=== PATIENT | female | born 1945 | race Caucasian/White ===

== ENCOUNTER → 2019-09-15 12:33 | Day surgery (SDC) | payer MEDICARE ==
--- NOTE | 2019-09-04 07:24 | HP ---
CC: Dr. Gabby Craig, [facility] * ADMISSION HISTORY AND PHYSICAL: DATE OF ADMISSION: 09/15/19 ATTENDING SURGEON: Dr. Mamadou Baker.* (DICTATED BY LATOSHA JEFFERSON) CHIEF COMPLAINT: Right inguinal hernia. HISTORY OF PRESENT ILLNESS: This is a 74-year-old female who was referred by Dr. Craig for evaluation of a right inguinal hernia. She states that the hernia has been present for the past 3 to 4 years and seemed to occur after a period of heavy lifting. She had some initial discomfort. She has noticed some increase in size over the years. More recently beginning about a month ago and after some extensive strenuous work, she noticed some increased pain. She has since modified her activity level without significant recurrence. She does note the onset of loose stool in the morning since the painful episode. There has been no blood in the stool. She has not had any change in her baseline symptoms. She does believe she has a cystocele and has a consult pending with Dr. Wylie in November. She was seen initially by Dr. Baker in May and more recently again on 08/23/19. Exam confirmed the presence of a reducible nontender right inguinal hernia with no hernia noted on the left. She has healed scars from her other prior surgeries. He discussed with her the indications for repair including risks, benefits, and alternatives as well as methods of repair. She is in agreement to proceed as scheduled with laparoscopic repair of her right inguinal hernia with mesh. PAST MEDICAL HISTORY: She is treated for hypertension and hyperlipidemia. She was evaluated in 2014 for Takotsubo syndrome and did undergo a catheterization at that time, which she states was otherwise normal. She has a suspected cystocele. PAST SURGICAL HISTORY: Previous surgeries include multiple laparoscopies, ovarian wedge resection for benign disease, rectocele repair listed in her chart record from 1988. No reported surgical or anesthesia complications. CURRENT MEDICATIONS: 1. Losartan 25 mg once daily. 2. Simvastatin 20 mg once daily. She also takes the following supplements: 1. Glucosamine with chondroitin. 2. Multivitamin. 3. Vitamin C and D. 4. Folic acid. 5. Calcium and magnesium. DRUG ALLERGIES: None. FAMILY HISTORY: Negative for anesthesia problems, bleeding, or clotting disorder. SOCIAL HISTORY: The patient lives with her son. She is a former smoker, who quit at age 23 after a 5-year history. She drinks on average less than or equal to 1 drink per day. She denies any other recreational drug use. REVIEW OF SYSTEMS: General: No recent constitutional symptoms or acute illnesses. Her weight has been stable. HEENT: No problems reported. Cardiovascular: As above in the past medical history. No recent symptoms of chest pain, palpitations, or shortness of breath. Respiratory: No chronic cough or shortness of breath. GI: Occasional GERD symptoms, relieved by over- the-counter antacids, but generally controlled with diet. Most recent colonoscopy around 2012 with no recommendation for further screening. : As above, no additions. MEDIA CONSULTANT OUTSIDE SALES: As above, no additions. Endocrine: No diabetes or thyroid dysfunction. PHYSICAL EXAMINATION GENERAL: Well-nourished, well-developed female in no acute distress. VITAL SIGNS: Height 5 feet 4-1/2 inches, weight 155 pounds. Blood pressure 122 /62, pulse 68, respirations 16. HEENT: Pupils are equal, round, and reactive. EOMs intact. No conjunctival pallor. Oropharynx: Teeth in good repair. No intraoral lesions. NECK: No lymphadenopathy, thyromegaly, or masses. LUNGS: Clear to auscultation. No rales or wheezes. HEART: Regular rate and rhythm. No murmur appreciated. BREASTS: Not examined. ABDOMEN: Umbilical scar as well as low transverse surgical incision. Soft, nontender to palpation. No palpable masses or organomegaly with the exception of the reducible nontender right inguinal hernia per Dr. Baker' exam. RECTAL: Not done. BACK: No spinous process or CVA tenderness. EXTREMITIES: No edema. NEUROLOGICAL: Grossly intact. SKIN: Warm and dry. No suspicious rashes or lesions noted. IMPRESSION: Right inguinal hernia. PLAN: Laparoscopic repair of right inguinal hernia with mesh. LATOSHA JEFFERSON [id number]/[facility] #: [id number] MTDD
[~2019-09-15 12:33] MED LIST: Acetaminophen TAB* 325 MG ONE; Acetaminophen TAB* 325 MG PO ONE; Acetaminophen TAB* 325 MG PO PRN; Buffered Lidocaine 1% SYRIN* 1 ML/SYRINGE INTRADERM ONE; Bupivacaine 0.25% EPI 200,000* 30 ML SDV ONE; Dexamethasone IV* 4 MG/ML 1 ML (4 MG) IM ONE; Dexamethasone IV* 4 MG/ML 1 ML (4 MG) IV SLOW PU ONE; Dexamethasone IV* 4 MG/ML 1 ML (4 MG) ONE; DiMENhydriNATE IV* 50 MG/ML VIAL IV PUSH PRN; EPHEDrine (Pressors)* 50 MG/ML VIAL ONE; Famotidine IV* 10 MG/ML 2 ML (20 mg) IV SLOW PU ONE; Famotidine IV* 10 MG/ML 2 ML (20 mg) ONE; HYDROcodone/ACETAMIN 5-325 MG* 1 TAB PO PRN; Ibuprofen TAB* 200 MG PO PRN; Ketorolac INJ* 30 MG/ML 1 ML VIAL ONE; Lactated Ringers 1000 ML Bag* 1,000 ML IV SCH; Lidocaine 2% PF * 5 ML VIAL ONE; Midazolam* 1 MG/ML 2 ML VIAL (2 MG) ONE; Naloxone* 0.4 MG/ML 1 ML VIAL IV PRN; Ondansetron INJ* 2 MG/ML VIAL IV PRN; Ondansetron INJ* 2 MG/ML VIAL ONE; PROCHLORPERAZINE INJ 5 MG/ML 2 ML VIAL IV PRN; Propofol* 10 MG/ML 20 ML BTL ONE; Rocuronium* 10 MG/ML VIAL ONE; Sugammadex * 200 MG/2 ML VIAL IV PUSH ONE; ceFAZolin 2 GM in NS PREMIX(*) 2 GM/100 ML BAG IVPB ONE; diPHENhydraMINE IV* 50 MG/ML 1 ml VIAL (BENADRYL) IV PRN; fentaNYL* 50 MCG/ML 2 ML VIAL (100 MCG VIAL) ONE; fentaNYL* 50 MCG/ML 5 ML VIAL (250 MCG VIAL) ONE
--- NOTE | 2019-09-15 20:18 | OP ---
Operative Report - Blank - Operative Report Date of Operation: 09/15/19
[2019-09-15] MEDS: fentaNYL* 50 MCG/ML 2 ML VIAL (100 MCG VIAL) IV PRN ×4 (20:35→21:01)
--- NOTE | 2019-09-15 22:36 | OP ---
CC: Gabby Craig MD * DATE OF OPERATION: 09/15/19 - [facility] DATE OF : 43 SURGEON: Mamadou Baker MD ENTRY LEVEL PROGRAMMER: Dr. Godoy. ANESTHESIOLOGIST: Dr. Spears. ANESTHESIA: General endotracheal. PRE-OP DIAGNOSIS: Right inguinal hernia. POST-OP DIAGNOSIS: Right inguinal hernia. OPERATIVE PROCEDURE: Laparoscopic repair of right inguinal hernia with mesh ( SATHYA). ESTIMATED BLOOD LOSS: Minimal. IV FLUIDS: Crystalloid. SPECIMEN: None. DRAINS: None. COMPLICATIONS: None. COUNTS: Instrument, needle, and sponge count correct. OPERATIVE FINDINGS: A right direct inguinal hernia. DESCRIPTION OF PROCEDURE: The patient was brought to the operating room and placed on the table supine. Sequential compression devices were placed in both lower extremities. General anesthesia was administered. García catheter was placed. Abdomen was prepped and draped in the usual sterile fashion. Time-out was performed. Local anesthetic was infiltrated infraumbilically. Curvilinear infraumbilical incision was created and anterior rectus fascia in the midline was incised. Preperitoneal balloon dissector was positioned and upon insufflation revealed this had gone intraperitoneally. This was removed and decision was made to perform transabdominal preperitoneal repair. The peritoneum was entered through the infraumbilical incision and 12 mm blunt port was placed. Carbon dioxide was insufflated to a pressure of 15 mmHg. Under direct visualization, two 5 mm trocars were placed, one in the right lower quadrant, one in the left lower quadrant. Scissors were used to incise the peritoneum about 8 cm above the inguinal ligament extending this from the area of the anterior superior iliac spine transversely to the medial umbilical ligament. There was an adhesive band noted in this area that was divided and in doing so it was noted that this appeared to be suspensory suture, presumable from the patient's previous surgery. The preperitoneal space was then entered and the dissection proceeded down to the pubic symphysis. Jorge's ligament was identified and the inferior epigastric vessels were identified. There was a direct inguinal hernia that was completely reduced. Inferior epigastric vessels were preserved. The round ligament was divided in order to fully dissect out the peritoneal flaps. Subsequently, a 10 x 15 cm Medtronic ProGrip mesh was placed to cover the entire hernia space extending from the midline laterally. Repair of the peritoneal incision was performed with 3-0 V-Loc 90 suture running from lateral to medial. One rent in the peritoneum was closed with the same type of suture. Subsequently, ports were removed and carbon dioxide was released. Infraumbilically, the fascia was closed with 0 Vicryl. Skin incisions were all closed with 4-0 Monocryl and then DermaFlex was applied. The patient tolerated the procedure well, was extubated and transferred to Recovery in stable condition. [id number]/[facility] #: [id number] [facility] HOSPITALAudelia
[2019-09-15 22:39] VITALS: BP 128/78
== END | disposition home or self-care (01) ==
LOC: OR 12:33
PROVIDERS: ATTEND Surgery
PROC: 0YU54JZ Supplement Right Inguinal Region with Synthetic Substitute, Percutaneous Endoscopic Approach (ICD-10-PCS; principal; 2019-09-15 14:15)
DX: K40.90 Unilateral inguinal hernia, without obstruction or gangrene, not specified as recurrent (principal); I10 Essential (primary) hypertension; E78.5 Hyperlipidemia, unspecified; Z98.890 Other specified postprocedural states; Z87.891 Personal history of nicotine dependence
CPT/HCPCS: A9270-GY; C1781; J0690; J1100; J1885; J2250; J2405; J2704; J3010